=== PATIENT | female | born 1950 | race Two or more races ===

== ENCOUNTER 2018-02-16 14:32 | Inpatient (IN) | payer OTHER ==
[~2018-02-16] VITALS: Ht 152.4 cm; Wt 74.8 kg
[~2018-02-16 14:32] MED LIST: DOLOGESIC 500-1 EACH PO; METFORMIN HCL500 M1
[2018-02-20] MEDS ORDERED: PREDNISONE20 MG PO ×2 (11:36→11:44)
== END 2018-02-20 15:53 | disposition home or self-care (01) | DRG 813 ==
LOC: ER 14:32 → MEDI 22:31
PROC: BW40ZZZ Ultrasonography of Abdomen (ICD-10-PCS; principal; 2018-02-16)
DX: D69.3 Immune thrombocytopenic purpura (principal); I10 Essential (primary) hypertension; E11.9 Type 2 diabetes mellitus without complications; M32.8 Other forms of systemic lupus erythematosus